=== PATIENT | female | born 1980 | race Caucasian/White ===

== ENCOUNTER 2023-05-25 03:09 | Emergency (ER) | payer OTHER, SELFPAY ==
[2023-05-25 03:12] VITALS: BP 146/94
--- NOTE | 2023-05-25 04:18 | ED.GENMED ---
History of Present Illness
General
Chief Complaint: Dental Problem
Source: patient
Exam Limitations: none
Time Seen by Provider: 05/25/23 03:54
Nursing documentation reviewed up to this point in time: agreed with
Travel History
Have you had any contact with someone who has COVID-19?: No
Do you have any symptoms of coronavirus? Fever > 100 degrees, chills, cough, shortness of breath, sore throat, loss of taste or smell, muscle aches, or headache?: No
History of Present Illness
History of Present Illness:
42-year-old female presents emergency department complaining of left lower tooth pain. It became painful tonight. She sustained a cracked lower tooth 2 months ago. She has a root canal scheduled on 05/30/2023.
Past History
Past History
ED Past Medical History: Asthma, NIDDM, Other (Ongoing back issues) and Other (PCOS)
ED Past Surgical History: Other
Social History
Tobacco: Non-smoker
Alcohol: None
Drug: None
Living: with family
Employment: Employed
Review of Systems
Review of Systems
Allergies reviewed?: Yes
All Other Systems: Not applicable
Constitutional: Reports no symptoms; Denies fever
EENT: Reports mouth pain
Respiratory: Denies trouble breathing
Phy Exam
General Physical Exam
General Presentation: well appearing and no apparent distress
General age: appears stated age
General Habitus: obese
General Mental: alert
ENT Exam
ENT Exam: other (Pain at tooth #21, dental carry on tooth 21)
Course
Vital Signs
Initial and Last Documented VS:
Initial Vital Signs
Temp Pulse Resp BP Pulse Ox
98.7 F 84 17 146/94 95
05/25/23 03:12 05/25/23 03:12 05/25/23 03:12 05/25/23 03:12 05/25/23 03:12
Last Documented Vital Signs
Temp Pulse Resp BP Pulse Ox
98.7 F 84 17 146/94 95
05/25/23 03:12 05/25/23 03:12 05/25/23 03:12 05/25/23 03:12 05/25/23 03:12
MDM/Problems Addressed
Differential Diagnosis Includes:
Dental abscess, dental pain
MDM/Problems Addressed:
42-year-old female with dental pain at tooth #21. Treat with amoxicillin and Toradol. Follow-up with dentist
*Pulse Oximetry
Patient hypoxic: no
*EKG
Interpreted by ED Provider?: NA
*Contingents Supervisor Interpretation
Rate: Contingents Supervisor- N/A
*Critical Care Note
Total Time (30-74mins, 75-104mins- exclusive of procedures): Not Applicable
Data Reviewed
Further Testing Considered But Not Given:
X-rays not indicated
Patient Management
Social determinants of health affecting care: Living situation and Strong social support
Escalation/DeEscalation of care consider admission/obs:
Admit not indicated
ED Attending Note
-
Portions of this chart may have been created with voice recognition software.� Occasional wrong word or��sound alike� substitutions may have occurred due to the inherent limitations of voice recognition software.
Discharge Plan
Departure
Patient Disposition: Home (Routine Discharge)
Date of Disposition: 05/25/23
Time of Disposition: 04:24
Patient with high blood pressure during this ER visit?: Yes
Condition: Good
Discharge Problem:
Pain, dental
Instructions: Dental Pain (DC), BLOOD PRESSURE
Prescriptions:
New
amoxicillin 500 mg capsule
500 mg PO TID Qty: 21 0RF
No Action
ibuprofen 200 MG tablet
3 tab PO PRN PRN (Reason: PAIN)
albuterol sulfate 1 PUFF HFA aerosol inhaler
2 puff inhalation R Q4HPRN PRN (Reason: ASTHMA)
Interventions
Interventions:
*Risk Screen - Suicide Last Done: 05/25/23 03:12
*General Assessment Last Done: 05/25/23 03:12
*Neglect/Abuse Screening Last Done: 05/25/23 03:12
ED- Fall Risk Assessment Last Done: 05/25/23 03:12
*ED COVID-19 Vaccine History Last Done: 05/25/23 03:12
[2023-05-25] MEDS: AMOXIL 500 MG PO (04:40)
[2023-05-25] MEDS: TORADOL 15 MG IM (04:41)
== END 2023-05-25 04:49 | disposition home or self-care (01) ==
LOC: EMR 03:09
PROVIDERS: EMERGENCY PHYSICIAN Emergency Medicine; FAMILY PHYSICIAN Internal Medicine Cardiovascular Disease
DX: K08.89 Other specified disorders of teeth and supporting structures (principal); K03.81 Cracked tooth; R03.0 Elevated blood-pressure reading, without diagnosis of hypertension; E11.9 Type 2 diabetes mellitus without complications; J45.909 Unspecified asthma, uncomplicated; E28.2 Polycystic ovarian syndrome; F17.200 Nicotine dependence, unspecified, uncomplicated
CPT/HCPCS: 99283

== ENCOUNTER 2023-05-31 00:31 | Emergency (ER) | payer OTHER, SELFPAY ==
[2023-05-31 00:34] VITALS: BP 195/128
--- NOTE | 2023-05-31 01:01 | ED.GENMED ---
History of Present Illness
General
Chief Complaint: Dental Problem
Source: patient
Exam Limitations: none
Time Seen by Provider: 05/31/23 00:51
Travel History
Have you had any contact with someone who has COVID-19?: No
Do you have any symptoms of coronavirus? Fever > 100 degrees, chills, cough, shortness of breath, sore throat, loss of taste or smell, muscle aches, or headache?: No
History of Present Illness
History of Present Illness:
This is a 42 year old female that comes in with c/o tooth pain. States that she was here last Saturday with dental pain. States that she was told to take Ibuprofen 400mg every [address] on Amoxicillin. States that today she had 1/2 of the
root canal donw and they put a temporary filling over the tooth as they had removed the root. States that she goes back on the for them to finish. States that today at 9:30pm she started with severe pain. States that she has a headache and had
some diarrhea. Denies any fever, chill, chest pain, SOB, abd pain, nausea, vomiting, dizziness, urinary burning.
Past History
Past History
ED Past Medical History: Asthma, NIDDM and Other (Ongoing back issues, PCOS, Scoliosis)
ED Past Surgical History: Other (Elliott carpal tunnel, Right hand surgery, )
Social History
Tobacco: Smoker
Alcohol: None
Drug: None
Personal:
Living: with family
Employment: Employed
Review of Systems
Review of Systems
All Other Systems: ROS reviewed and negative except as documented in HPI and ROS
Constitutional: Reports no symptoms; Denies fever or chills
EENT: Reports other (Left lower dental pain)
Respiratory: Reports no symptoms; Denies cough or trouble breathing
Cardiac: Reports no symptoms; Denies chest pain
ABD/GI: Reports diarrhea; Denies abdominal pain, nausea or vomiting
: Reports no symptoms; Denies dysuria, frequency or urgency
Musculoskeletal: Reports no symptoms
Skin: Reports no symptoms
Neurological: Reports headache; Denies dizzy
Psychiatric: Reports no symptoms
Phy Exam
General Physical Exam
General Presentation: mild distress
General age: appears stated age
General Skin: warm and dry
General Habitus: normal
General Mental: alert
General Hydration: appears well hydrated
ENT Exam
ENT Exam: TM's normal, pharynx normal, neck supple and other (Negative for any redness of the left lower gum line or swelling. )
Eye Exam
Eye Exam: EOMI
Cardiovascular Exam
Cardiovascular Exam: regular rate/rhythm
Pulmonary Exam
Pulmonary Exam: no respiratory distress, no rales, chest non tender, no crackles, no rhonchi, no cough and other (Faint insp and exp wheezing noted)
Musculoskeletal Exam
Musculoskeletal Exam: full ROM
Skin Exam
Skin Exam: normal color, warm/dry, no rash and no petechia
Psychiatric Exam
Psychiatric Exam: normal mood/affect
Course
Orders/Labs/Results
Orders:
Orders
05/31/23 01:00
HYDROmorphone [Dilaudid] 2 mg PO NOW STA
05/31/23 01:01
Acetaminophen [Tylenol] 1,000 mg PO NOW STA
Vital Signs
Initial and Last Documented VS:
Initial Vital Signs
Temp Pulse Resp BP Pulse Ox
98.2 F 90 22 195/128 98
05/31/23 00:34 05/31/23 00:34 05/31/23 00:34 05/31/23 00:34 05/31/23 00:34
Last Documented Vital Signs
Temp Pulse Resp BP Pulse Ox
98.2 F 90 22 167/101 98
05/31/23 00:34 05/31/23 00:34 05/31/23 00:34 05/31/23 01:24 05/31/23 00:34
MDM/Problems Addressed
Differential Diagnosis Includes:
Dental pain
MDM/Problems Addressed:
This is a 42 year old female that comes in with c/o dental pain. States that she was here on Saturday night with tooth pain. Patient saw the Dentist today and had the root removed and a filling placed over the site until they finish on the .
States that she is in severe pain. States that she is taking amoxicillin which she was given last Saturday and also Ibuprofen 400mg every 4 hours.
Will medicate patient for pain and have her call her Oral surgeon tomorrow. Will discharge home.
Chronic conditions affecting care:
NA
Acute Exacerbation and/or Progression of Chronic Illness:
NA
*Pulse Oximetry
Patient hypoxic: no
*EKG
Interpreted by ED Provider?: NA
Rate: EKG- N/A
*Roll Operator Interpretation
Rate: Roll Operator- N/A
*Critical Care Note
Total Time (30-74mins, 75-104mins- exclusive of procedures): Not Applicable
ED Attending Note
-
Portions of this chart may have been created with voice recognition software.� Occasional wrong word or��sound alike� substitutions may have occurred due to the inherent limitations of voice recognition software.
Discharge Plan
Departure
Patient Disposition: Home (Routine Discharge)
Date of Disposition: 05/31/23
Time of Disposition: 01:10
Patient with high blood pressure during this ER visit?: Yes
Condition: Good
Covid-19: Not Applicable
Discharge Problem:
Pain, dental
Instructions: Dental Pain (DC), BLOOD PRESSURE
Prescriptions:
No Action
ibuprofen 200 MG tablet
3 tab PO PRN PRN (Reason: PAIN)
albuterol sulfate 1 PUFF HFA aerosol inhaler
2 puff inhalation R Q4HPRN PRN (Reason: ASTHMA)
amoxicillin 500 mg capsule
500 mg PO TID Qty: 21 0RF
Activity Restrictions/Additional Instructions:
As discussed, you have been given pain medication here. Please call your Oral surgeon in the morning for further pain medication if needed. At this time you may use Tylenol 1000mg every 6 hours for pain and Ibuprofen 400mg every 6 hours with food
for pain. IF YOU HAVE ANY FEVER, OR YOU HAVE ANY OTHER CONCERNS PLEASE RETURN TO THE EMERGENCY ROOM.
Interventions
Interventions:
*Risk Screen - Suicide Last Done: 05/31/23 00:34
*General Assessment Last Done: 05/31/23 00:34
*Neglect/Abuse Screening Last Done: 05/31/23 00:34
ED- Fall Risk Assessment Last Done: 05/31/23 00:34
*ED COVID-19 Vaccine History Last Done: 05/31/23 00:34
*Nursing Disposition Last Done: 05/31/23 01:24
[2023-05-31] MEDS: TYLENOL 1000 MG PO (01:17)
[2023-05-31] MEDS: DILAUDID 2 MG PO (01:17)
[2023-05-31 01:24] VITALS: BP 167/101
== END 2023-05-31 01:24 | disposition home or self-care (01) ==
LOC: EMR 00:31
PROVIDERS: EMERGENCY PHYSICIAN Student in an Organized Health Care Education/Training Program
DX: K08.89 Other specified disorders of teeth and supporting structures (principal); F17.200 Nicotine dependence, unspecified, uncomplicated; R03.0 Elevated blood-pressure reading, without diagnosis of hypertension
CPT/HCPCS: 99283